=== PATIENT | male | born 1975 | race Caucasian/White ===

== ENCOUNTER 2017-03-17 23:34 | Emergency (ER) | payer OTHER ==
[~2017-03-17] VITALS: Ht 167.6 cm; Wt 56.8 kg
[2017-03-17 23:46] VITALS: BP 128/80; PULSE 110; RESP 20; O2SAT 100
--- NOTE | 2017-03-17 23:55 | ED.REPORT ---
HPI-General Illness Date of Service Mar 17, 2017 ED Provider: Torsten Saleem MD The patient is a 41 year old male who presents to the ED due to a large, red, area of skin irritation on his right lower leg onset 4 days ago and increasing in severity. He has never had symptoms like this before. Pt denies any fever, pain, hx of blood clots, recent surgery surgeries, allergies, and is not on any medications. He does have a remote history of skin graft to this region. Nursing Notes Stated Complaint: POSSIBLE INFECTION IN RIGHT LEG Chief Complaint: Skin Rash/Abscess Nursing Notes Reviewed: Yes Allergies: Coded Allergies: No Known Allergies (Unverified , 03/17/17) Scheduled Mupirocin (Mupirocin Ointment) 22 Gm Oint...g. 1 APPLIC TOP TID General Time Seen by MD: 23:54 Chief Complaint Rash Hx Obtained From: Patient Arrived By: Walk-in Sudden in Onset?: Yes Onset Occurred: 4 days ago Symptom Duration: Since onset Location: : Leg right Severity: Current: No pain currently Recent Healthcare: No recent doctor visit, No recent hospitalization Similar Sx Previous: No Past Medical History Past Medical History denies Past Surgical History denies Smoking History Unknown if Ever Smoker Social History Other Social History: Local resident Ambulatory Status Independent Review of Systems Full Review of Systems Constitutional: Denies: Chills, Fever Musculoskeletal: Denies: Extremity pain, Joint pain Skin: Reports Rash (cellulitis to right calf ), Denies Diaphoresis, Denies Itching, Denies Swelling Complete sys rev & neg: except as marked. Physical Exam Vital Signs Vital Signs Date Time Temp Pulse Resp B/P Pulse Ox O2 Delivery O2 Flow Rate FiO2 03/17/17 23:46 36.8 110 20 128/80 100 Room Air Initial VS: Reviewed General/Constitutional: Awake, Alert, No acute distress, Cooperative Head / Eyes: Atraumatic, Normocephalic, PERRL, EOMI ENT: Atraumatic, Airway patent, Mucous membranes moist Neck: Atraumatic, Supple Respiratory / Chest: Atraumatic, Breath sounds NL, Breath sounds = bilat Cardiovascular: Heart rate NL, Regular rhythm, Heart sounds NL Abdomen: Atraumatic, Soft, Non-tender Upper Extremities Upper Extremity / MS: Atraumatic, Inspection NL, No deformity Wrist / Hand: Atraumatic, Inspection NL, No deformity Lower Extremity / Pelvis / MS: Neurologic intact Right Leg / Calf: Positive: Erythema present erythema and induration of right lower ankle starting at ankle and extending proximally and extending 2/[address] up his leg good DP pulses Right Ankle: Positive: Erythema present erythema and induration of right lower ankle starting at ankle and extending proximally and extending 2/[address] up his leg good DP pulses Neurologic: Oriented X3, Speech NL, No motor deficits Re-Eval/Medical Decision Med Decision/Clinical Course The patient is a 41 year old male who presents to the ED due to a large, red, area of skin irritation on his right lower leg onset 4 days ago and increasing in severity. He has never had symptoms like this before. Pt denies any fever, pain, hx of blood clots, recent surgery surgeries, allergies, and is not on any medications. He does have a remote history of skin graft to this region. Here in the emergency department the patient is slightly tachycardic though otherwise afebrile with stable vital signs in no apparent distress. His tachycardia resolved in the examination room. Examination most consistent with localized cellulitis. No evidence of abscess. There are some overlying excoriations to the skin in this region however there is otherwise intact. Patient is nontoxic in appearance. He will be treated with a 10 day course of Keflex. He is advised to return immediately for fevers, chills, worsening redness, warmth or any other concerning signs or symptoms. He is to follow-up with his primary care physician in the coming week. Examination is not suggestive of DVT. I do not feel that laboratory studies, imaging or ultrasound are indicated at this time. Prior to discharge follow-up and return precautions were reviewed in detail with the patient who verbalized understanding and agreement with the plan. The patient was discharged in stable condition. Counseled Regarding: Diagnosis, Lab results, Need for follow-up, When/why to return to ED Discharge & Departure Primary Impression: Cellulitis Site of cellulitis: extremity Site of cellulitis of extremity: lower extremity Laterality: right Qualified Code: L03.115 - Cellulitis of right lower limb Additional Impressions: Lower extremity cellulitis Laterality: right Qualified Code: L03.115 - Cellulitis of right lower limb History of skin graft Disposition: Home Discharge Condition All VS Reviewed: Yes Condition: Stable Patient Instructions: Cellulitis (ED) Additional Instructions: Take the Keflex as prescribed. Return to the Emergency Department for any new or worsening symptoms including increased pain, redness, swelling, discharge. warmth, fever, or signs of infection. Thank you for entrusting us with your care today. Referrals: [facility] Scribe Attestation Portion of this note were transcribed by Mildred Bravo. I, Dr. Saleem, personally performed the history, physical exam, and medical decision-making: I reviewed and confirmed the accuracy for the information in the transcribed note. Signed by: romie Renteria, 03/18/17 0200 copies to: [facility] Torsten Saleem MD Mar 17, 2017 23:55 Mildred Bravo Mar 18, 2017 00:22
[2017-03-18] MEDS ORDERED: Hydrocortisone 2.5% 28 Gm Cream TOPICAL ONE (00:05)
[2017-03-18] MEDS ORDERED: diphenhydrAMINE 25 mg Capsule PO ONE (00:05)
[2017-03-18] MEDS ORDERED: Mupirocin 2% 22 Gm Ointment TOPICAL SCH (00:05)
[2017-03-18] MEDS ORDERED: MUPI22OI2 TOP (00:07)
[2017-03-18] MEDS ORDERED: _Cephalexin 500 mg Capsule PO SCH (08:30)
== END 2017-03-18 00:47 | disposition home or self-care (01) ==
LOC: SED 23:34
DX: L03.115 Cellulitis of right lower limb (principal); Z94.5 Skin transplant status